=== PATIENT | male | born 1955 | race Caucasian/White ===

== ENCOUNTER 2025-07-15 21:58 | Emergency (ER) | payer MEDICARE, OTHER ==
[~2025-07-15 21:58] MED LIST: Iopamidol 370 76% 100 ML VIAL ONE
[2025-07-15 22:15] LABS: #Basophils 0.1 thou/uL (0.0-0.2); #Eosinophils 0.1 thou/uL (0.0-0.7); #Lymphocytes 1.4 thou/uL (1.20-3.40); #Monocytes 0.9 thou/uL (0.11-0.59); #Neutrophils 6.3 thou/uL (1.40-6.50); %Basophils 0.6 % (0.0-1.0); %Eosinophils 1.4 % (0.0-10.0); %Lymphocytes 15.5 % (21.0-51.0); %Monocytes 10.5 % (0.0-10.0); %Neutrophils 71.9 % (42.0-75.0); Hematocrit 35.0 % (42.0-52.0); Hemoglobin 12.1 g/dL (14.0-18.0); Mean Corpuscular Hemoglobin 35.0 pg (27.0-31.0); Mean Corpuscular Volume 101.0 fl (78.0-98.0); Platelet Count 281 10x3/uL (130-400); Red Blood Cell (RBC) Count 3.46 mill/uL (4.70-6.10); White Blood Cell (WBC) Count 8.8 10x3/uL (4.8-10.8)
[2025-07-15 22:33] LABS: ALT (SGPT) 18 U/L (Less than 45); AST (SGOT) 22 U/L (11-34); Albumin 3.9 g/dL (3.1-4.5); Alkaline Phosphatase 99 U/L (40-110); Anion Gap 14 mmol/L (10-20); BUN (Urea Nitrogen) 31 mg/dL (8.4-25.7); Bilirubin, Total 0.3 mg/dL (0.3-1.2); Calc. Creatinine Clearance 0 mL/min (70-130); Calcium 8.5 mg/dL (7.8-10.44); Carbon Dioxide 20 mmol/L (23-31); Chloride 109 mmol/L (98-107); Globulin 2.9 g/dL (2.4-3.5); Glucose 171 mg/dL (80-115); Potassium 4.1 mmol/L (3.5-5.1); Sodium 139 mmol/L (136-145)
[2025-07-15 22:34] LABS: Troponin I 0.044 ng/mL (< 0.028)
[2025-07-16] MEDS ORDERED: HYDROcodone/Acetaminophen 10/325 mg Tablet ONE ×2 (00:01→06:17)
[2025-07-16 00:34] LABS: Glucose, Urine (Dipstick) Negative (Negative); Leukocyte Negative (Negative); Protein, Urine (Dipstick) 30 mg/dL (Neg-Trace); Specific Gravity, Urine 1.010 (1.005-1.030)
[2025-07-16 00:35] LABS: Bacteria/HPF None Seen HPF (None Seen); CAUTI Indications for Culture Dysuria,urgency,freq; RBC/HPF None Seen HPF (0-3); WBC/HPF None Seen HPF (0-3)
[2025-07-16 00:36] LABS: Urine Culture Reflex No No
[2025-07-16] MEDS ORDERED: Aspirin Chewable 81 MG TAB ONE (00:39)
[2025-07-16 00:44] LABS: Cocaine Metabolite Screen Negative (Negative); THC/Cannabinoid Screen Negative (Negative); Tricyclic Screen Negative (Negative)
[2025-07-16] MEDS ORDERED: clonazePAM 0.5 MG TAB ONE (01:12)
[2025-07-16 01:56] LABS: Troponin I 0.041 ng/mL (< 0.028)
[2025-07-16 05:32] LABS: Troponin I 0.046 ng/mL (< 0.028)
[2025-07-16] MEDS ORDERED: Orphenadrine Citrate 60 MG/2 ML VIAL ONE (10:13)
[2025-07-16] MEDS ORDERED: Ketorolac Tromethamine 30 MG (1 mL) VIAL ONE (10:13)
[2025-07-16] MEDS ORDERED: Nitroglycerin 2% Ointment 1 INCH/1 GM Packet ONE (10:37)
[2025-07-16 10:42] LABS: Troponin I 0.040 ng/mL (< 0.028)
== END 2025-07-16 12:39 | disposition short-term general hospital (02) ==
LOC: NAV ERS 21:58
DX: S22.41XA Multiple fractures of ribs, right side, initial encounter for closed fracture (principal); I51.3 Intracardiac thrombosis, not elsewhere classified; Z72.89 Other problems related to lifestyle; I10 Essential (primary) hypertension; I25.10 Atherosclerotic heart disease of native coronary artery without angina pectoris; W19.XXXA Unspecified fall, initial encounter
CPT/HCPCS: 70450; 71260; 72125; 74177; 80053; 80306; 81001; 84484; 85025; 93005; 94799; 96372; 96374; 96375; J1650; J1885; J2270; J2272; J2360; J7030

== ENCOUNTER 2025-08-02 08:20 | Emergency (ER) | payer OTHER ==
[2025-08-02] MEDS ORDERED: Iopamidol 370 76% 100 ML VIAL ONE (09:00)
[2025-08-02] MEDS ORDERED: Ondansetron PF 4 MG/2 ML Vial ONE (09:17)
[2025-08-02 09:33] LABS: Hematocrit 29.6 % (42.0-52.0); Hemoglobin 10.7 g/dL (14.0-18.0); Red Blood Cell (RBC) Count 3.05 mill/uL (4.70-6.10); White Blood Cell (WBC) Count 11.7 10x3/uL (4.8-10.8)
[2025-08-02 09:34] LABS: #Basophils 0.1 thou/uL (0.0-0.2); #Eosinophils 0.0 thou/uL (0.0-0.7); #Lymphocytes 0.6 thou/uL (1.20-3.40); #Monocytes 0.9 thou/uL (0.11-0.59); #Neutrophils 10.1 thou/uL (1.40-6.50); %Basophils 0.4 % (0.0-1.0); %Eosinophils 0.0 % (0.0-10.0); %Lymphocytes 5.2 % (21.0-51.0); %Monocytes 7.7 % (0.0-10.0); %Neutrophils 86.7 % (42.0-75.0); Manual Diff?? NO; Mean Corpuscular Hemoglobin 35.1 pg (27.0-31.0); Mean Corpuscular Volume 96.9 fl (78.0-98.0); Platelet Count 267 10x3/uL (130-400)
[2025-08-02 09:39] LABS: INR-International Normal Ratio 1.2; Prothrombin Time 15.0 sec (12.0-14.7)
[2025-08-02 09:40] LABS: PTT 34.1 sec (22.9-36.1)
[2025-08-02 09:48] LABS: ALT (SGPT) 209 U/L (Less than 45); AST (SGOT) 219 U/L (11-34); Albumin 3.5 g/dL (3.1-4.5); Alkaline Phosphatase 78 U/L (40-110); Anion Gap 20 mmol/L (10-20); BUN (Urea Nitrogen) 23 mg/dL (8.4-25.7); Bilirubin, Total 0.7 mg/dL (0.3-1.2); Calc. Creatinine Clearance 0 mL/min (70-130); Calcium 8.3 mg/dL (7.8-10.44); Carbon Dioxide 14 mmol/L (23-31); Chloride 109 mmol/L (98-107); Globulin 2.8 g/dL (2.4-3.5); Glucose 117 mg/dL (80-115); Potassium 3.6 mmol/L (3.5-5.1); Sodium 139 mmol/L (136-145); Troponin I 0.059 ng/mL (< 0.028)
[2025-08-02 10:24] LABS: CK (CPK) 4328 U/L (30-200)
== END 2025-08-02 11:36 | disposition short-term general hospital (02) ==
LOC: NAV ERS 08:20
DX: S20.212A Contusion of left front wall of thorax, initial encounter (principal); M62.82 Rhabdomyolysis; E87.20 Acidosis, unspecified; I11.0 Hypertensive heart disease with heart failure; I50.9 Heart failure, unspecified; E11.40 Type 2 diabetes mellitus with diabetic neuropathy, unspecified; I25.10 Atherosclerotic heart disease of native coronary artery without angina pectoris; Z79.84 Long term (current) use of oral hypoglycemic drugs; Z79.899 Other long term (current) drug therapy; W01.10XA Fall on same level from slipping, tripping and stumbling with subsequent striking against unspecified object, initial encounter
CPT/HCPCS: 71260; 74177; 80053; 82550; 83880; 84484; 85025; 85610; 85730; 93005; 94760; 96361; 96374; 96375; J2270; J2405; J7030; Q9967